=== PATIENT | male | born 1955 | race African-American/Black ===

== ENCOUNTER 2023-12-24 11:08 | Emergency (ER) | payer BC, MEDICARE, OTHER ==
[~2023-12-24] VITALS: Ht 180.3 cm; Wt 84.9 kg
[2023-12-24 11:16] VITALS: O2SAT 100
[2023-12-24] MEDS: PREDNISONE 20MG TABLET PO ONE (12:15)
[2023-12-24] MEDS: DIPHENHYDRAMINE 25MG CAPSULE PO ONE (12:39)
[2023-12-24 13:36] LABS: BASOPHILS % 0.7 % (0.0-2.0); EOSINOPHILS % 0.7 % (0.0-5.0); HEMATOCRIT. 44.1 % (42.0-52.0); HEMOGLOBIN. 14.3 g/dL (14.0-18.0); LYMPHOCYTES % 63.4 % (20.0-50.0); MEAN CORPUSCULAR HEMOGLOBIN 27.3 pg (28.0-32.0); MEAN CORPUSCULAR HGB CONC 32.3 g/dL (31.0-37.0); MEAN CORPUSCULAR VOLUME 84.5 fL (80.0-94.0); MONOCYTES % 8.5 % (2.0-8.0); NEUTROPHILS % 26.7 % (40.0-76.0); PLATELET 214 x1000/uL (130-400); RED BLOOD CELL COUNT 5.22 mill/uL (4.7-6.1); RED CELL DISTRIBUTION WIDTH 13.5 % (11.6-14.6); WHITE BLOOD COUNT 5.7 x1000/uL (4.5-11.0)
[2023-12-24 14:03] LABS: ALANINE AMINOTRANSFERASE 28 IU/L (10-49); ALBUMIN 4.4 g/dL (3.2-4.8); ASPARTATE AMINOTRANSFERASE 24 IU/L (<34); BILIRUBIN TOTAL 0.5 mg/dL (0.1-1.0); CALCIUM 9.3 mg/dL (8.7-10.4); CARBON DIOXIDE 28 mEq/L (21-32); CHLORIDE 106 mEq/L (98-107); CREATININE 1.1 mg/dL (0.6-1.3); GLUCOSE 101 mg/dL (70-105); POTASSIUM 4.3 mEq/L (3.5-5.1); PROTEIN TOTAL 6.8 g/dL (6.0-8.3); SODIUM 141 mEq/L (136-145); UREA NITROGEN BLOOD 9 mg/dL (9-23)
[2023-12-24] MEDS ORDERED: HYDR30CR7 TP (14:15)
[2023-12-24] MEDS ORDERED: P50 MT (14:15)
[2023-12-24] MEDS ORDERED: DIPH25CA83 MT (14:15)
[2023-12-24 14:22] VITALS: BP 148/76; PULSE 65; RESP 16; TEMP 98.2
== END 2023-12-24 14:24 | disposition home or self-care (01) ==
LOC: ER 11:08 → CANBEDREQ 12-25 21:23
DX: L93.0 Discoid lupus erythematosus (principal); I10 Essential (primary) hypertension; E78.00 Pure hypercholesterolemia, unspecified
CPT/HCPCS: 99283; 80053; 85025; 36415; Q0163; J7512